=== PATIENT | female | born 1985 | race Two or more races ===

== ENCOUNTER 2016-12-11 15:55 | Emergency (ER) | payer MEDICAID ==
[2016-12-11] MEDS ORDERED: ONDANSETRON 4 MG/2 ML VIAL IVP ONE (17:28)
[2016-12-11] MEDS ORDERED: NS 1,000 ML IV ONE ×2 (17:28→19:14)
--- NOTE | 2016-12-11 17:40 | EDPHY ---
H & P Time Seen by Provider: 12/11/16 17:19 HPI/ROS: CHIEF COMPLAINT: Vomiting and diarrhea HISTORY OF PRESENT ILLNESS: 31-year-old female presents with 1 day history of vomiting and diarrhea. Onset of nausea and generalized abdominal pain this morning, followed by 1 episode of diarrhea. After the diarrhea, the abdominal pain nearly resolved. Since then she has had multiple episodes of vomiting and diarrhea. She developed a subjective fever this afternoon. No abdominal pain now. No urinary symptoms. REVIEW OF SYSTEMS: Constitutional: No fever, no chills Eyes: No visual changes ENT: No sore throat Respiratory: No cough, no shortness of breath Cardiac: No chest pain Genitourinary: no dysuria Musculoskeletal: No myalgias Skin: No rash Neurological: No headache, no weakness Psychiatric: No depression Past Medical/Surgical History: Denies Social History: Attends school. Smoking Status: Never smoked Physical Exam: General Appearance: Alert, pleasant, nontoxic-appearing Eyes: Pupils equal and round, no conjunctival pallor or injection ENT, Mouth: Mucous membranes moist Neck: Normal inspection Respiratory: Lungs are clear to auscultation Cardiovascular: Regular rate and rhythm Gastrointestinal: Abdomen is soft and nontender Neurological: A&O, nonfocal, normal gait Skin: Warm and dry Extremities: normal inspection Psychiatric: Mood and affect normal Constitutional: Initial Vital Signs Temperature (C) 37.8 C 12/11/16 16:09 Heart Rate 128 H 12/11/16 16:09 Respiratory Rate 18 12/11/16 16:09 Blood Pressure 121/82 H 12/11/16 16:09 O2 Sat (%) 95 12/11/16 16:09 O2 Delivery Mode Room Air Allergies/Adverse Reactions: No Known Allergies Allergy (Verified 12/11/16 16:08) Home Medications: Medication Instructions Recorded Ondansetron Odt [Zofran Odt 4 mg 4 mg PO Q4 PRN #6 tab 12/11/16 (*)] Medical Decision Making ED Course/Re-evaluation: IV normal saline 1 L and Zofran 4 mg IV given. The patient was able to tolerate oral fluids after the Zofran. Abdominal exam remains benign. Safe and stable for discharge home. Differential Diagnosis: Differential diagnosis includes though it is not limited to appendicitis, cholecystitis, diverticulitis, pyelonephritis, bowel perforation, small bowel obstruction. - Data Points Medications Given: Discontinued Medications Sodium Chloride (Ns) 1,000 mls @ 0 mls/hr IV EDNOW ONE; Wide Open PRN Reason: Protocol Stop: 12/11/16 17:29 Last Admin: 12/11/16 18:07 Dose: 1,000 mls Sodium Chloride (Ns) 1,000 mls @ 0 mls/hr IV ONCE ONE PRN Reason: Wide Open Stop: 12/11/16 19:15 Last Admin: 12/11/16 19:19 Dose: 1,000 mls Ondansetron HCl (Zofran) 4 mg IVP EDNOW ONE Stop: 12/11/16 17:29 Last Admin: 12/11/16 18:07 Dose: 4 mg Departure - Departure Disposition: Home, Routine, Self-Care Clinical Impression: Vomiting and diarrhea Condition: Good Instructions: Gastroenteritis (ED) Referrals: JOSEFINA BOBO [Other] - As per Instructions Stand Alone Forms: School Excuse, Work Excuse Prescriptions: Ondansetron Odt [Zofran Odt 4 mg (*)] 4 mg PO Q4 PRN #6 tab PRN Reason: Nausea
[2016-12-11 18:10] VITALS: RESP 16
[2016-12-11 19:25] LABS: COLOR YELLOW; LEUKOCYTE ESTERASE,URINE NEGATIVE (NEGATIVE); NITRITE,URINE NEGATIVE (NEGATIVE)
[2016-12-11 19:29] LABS: MUCUS 4+ /lpf (NONE-1+)
[2016-12-11 19:53] VITALS: BP 121/80; PULSE 114; TEMP 99.7; O2SAT 94
== END 2016-12-11 19:51 | disposition home or self-care (01) ==
DX: R11.10 Vomiting, unspecified (principal); R19.7 Diarrhea, unspecified; E86.9 Volume depletion, unspecified
CPT/HCPCS: 96374; J2405